=== PATIENT | female | born 1950 | race American Indian/Alaskan Native ===

== ENCOUNTER 2017-06-13 09:31 | Outpatient (CLI) | payer MEDICARE ==
--- NOTE | 2017-06-13 15:44 | Mammography Report ---
BILATERAL DIGITAL SCREENING MAMMOGRAM with CAD : 06/13/17 09:31:00 CLINICAL: Routine screening. COMPARISON:A FINDINGS: The breasts are heterogeneously dense, which may obscure small masses.The fibroglandular pattern is stable with stable bilateral asymmetries. No new mass, architectural distortion or suspicious calcifications. IMPRESSION: No mammographic evidence of malignancy. BI-RADS CATEGORY: 2 -- Benign RECOMMENDATION: Routine mammographic screening in one year. COMMENT: Patient follow-up letters are generated by our [employer] application.
== END 2017-06-13 09:32 | disposition home or self-care (01) ==
LOC: SPVWC 09:31
PROVIDERS: ATTEND Internal Medicine
DX: Z12.31 Encounter for screening mammogram for malignant neoplasm of breast (principal)
CPT/HCPCS: 77067; G0202

== ENCOUNTER 2019-06-26 09:33 | Outpatient (CLI) | payer MEDICARE ==
--- NOTE | 2019-06-26 14:30 | Mammography Report ---
DIGITAL SCREENING MAMMOGRAM WITH CAD, 06/26/2019 INDICATION: Routine screening mammography. TECHNIQUE: Digital bilateral 2D mammography was obtained in the craniocaudal and mediolateral obliq ue projections. This examination was interpreted with the benefit of Computer-Aided Detection analysi s. COMPARISON: 06/23/2018 and annual mammograms going back to 03/12/2014 FINDINGS: Breast Density: The breasts are heterogeneously dense, which may obscure small masses. There is no evidence of new mass, suspicious calcifications or architectural distortion in either martir ast. Stable right inner irregular circumscribed mass with benign calcifications. IMPRESSION: No mammographic evidence of malignancy. Follow up recommendation: Routine yearly BI-RADS Category 2: Benign. A "normal" or negative report should not discourage follow up or biopsy of a clinically significant f inding. A written summary of these findings will be mailed to the patient. The patient will be entered into a mammography reporting system which will generate a reminder letter for the patient's next appointmen t at the appropriate interval. The [employer] recommends yearly mammograms starting at age 40 and continuing as l krystina as a woman is in good health. Breast MRI is recommended for women with an approximate 20-25% or greater lifetime risk of breast cancer, including women with a strong family history of breast or ova colt cancer or who have been treated for Hodgkin's disease. Signer Name: Orville Conti MD Signed: 06/26/2019 2:26 PM Workstation Name: [id number]
== END 2019-06-26 09:34 | disposition home or self-care (01) ==
LOC: SPVWC 09:33
PROVIDERS: ATTEND Internal Medicine
DX: Z12.31 Encounter for screening mammogram for malignant neoplasm of breast (principal)
CPT/HCPCS: 77067

== ENCOUNTER 2020-07-04 10:39 | Outpatient (CLI) | payer MEDICARE ==
--- NOTE | 2020-07-04 12:11 | Mammography Report ---
DIGITAL SCREENING MAMMOGRAM WITH CAD, 07/04/2020 CLINICAL INFORMATION / INDICATION: Routine screening mammography. TECHNIQUE: Digital bilateral 2D mammography was obtained in the craniocaudal and mediolateral obliqu e projections. This examination was interpreted with the benefit of Computer-Aided Detection analysis . COMPARISON: 04/09/2015 through 06/26/2019 FINDINGS: Breast Density: There are scattered areas of fibroglandular density. No dominant mass, suspicious calcifications, or architectural distortion in either breast. There are stable benign-appearing bilateral nodules. I do not see significant interval change in the overall appearance of the mammogram. IMPRESSION: No mammographic evidence of malignancy. Follow up recommendation: Routine yearly BI-RADS Category 2: Benign. A "normal" or negative report should not discourage follow up or biopsy of a clinically significant f inding. A written summary of these findings will be mailed to the patient. The patient will be entered into a mammography reporting system which will generate a reminder letter for the patient's next appointmen t at the appropriate interval. The [employer] recommends yearly mammograms starting at age 40 and continuing as l krystina as a woman is in good health. Breast MRI is recommended for women with an approximate 20-25% or greater lifetime risk of breast cancer, including women with a strong family history of breast or ova colt cancer or who have been treated for Hodgkin's disease. Signer Name: Susana Cervantes MD Signed: 07/04/2020 12:06 PM Workstation Name: [id number]
== END 2020-07-04 10:40 | disposition home or self-care (01) ==
LOC: SPVWC 10:39
PROVIDERS: ATTEND Internal Medicine
DX: Z12.31 Encounter for screening mammogram for malignant neoplasm of breast (principal); N64.89 Other specified disorders of breast
CPT/HCPCS: 77067

== ENCOUNTER 2020-10-08 11:13 | Outpatient (CLI) | payer MEDICARE ==
--- NOTE | 2020-10-08 16:13 | Mammography Report ---
DEXA BONE DENSITY SCAN INDICATION / CLINICAL INFORMATION: UNSPECIFIED MENOPAUSAL AND PERIMENOPAUSAL DISORDER. 69 years Female COMPARISON: None available. LUMBAR SPINE, L1, L2, L4: - Bone mineral density (BMD) = 1.097 g/cm2. - T-score = -0.5 - Z-score = 1.8 Change (%) since most recent prior (if available): None available. LEFT HIP, NECK : - Bone mineral density (BMD) = 0.707 g/cm2. - T-score = -1.7 - Z-score = -0.3 Change (%) since most recent prior (if available): None available. IMPRESSION: 1. WHO Classification: Osteopenia. Fracture Risk: Increased. Note: 10-Year Fracture Risk (FRAX) not reported. This DEXA unit lacks FRAX functionality. BMD Reporting Guidelines (ISCD, 2015) BMD Reporting in Postmenopausal Women and in Men Age 50 and Older - T-scores are preferred. - The WHO densitometric classification is applicable. BMD Reporting in Females Prior to Menopause and in Males Younger Than Age 50 - Z-scores, not T-scores, are preferred. This is particularly important in children. - A Z-score of -2.0 or lower is defined as below the expected range for age, and a Z-score above -2.0 is within the expected range for age. - Osteoporosis cannot be diagnosed in men under age 50 on the basis of BMD alone. - The WHO diagnostic criteria may be applied to women in the menopausal transition. http://www.iscd.org/official-positions/5607-kpbl-qzilnfso-positions-adult/ Signer Name: Prieto Barahona MD Signed: 10/08/2020 4:08 PM Workstation Name: [id number]
== END 2020-10-08 11:14 | disposition home or self-care (01) ==
LOC: SPVWC 11:13
PROVIDERS: ATTEND Internal Medicine
DX: M85.88 Other specified disorders of bone density and structure, other site (principal); N95.9 Unspecified menopausal and perimenopausal disorder
CPT/HCPCS: 77080

== ENCOUNTER 2021-07-10 09:05 | Outpatient (CLI) | payer MEDICARE | END 2021-07-10 09:06 | disposition home or self-care (01) | LOC: SPVWC 09:05 | PROVIDERS: ATTEND Internal Medicine | DX: Z12.31 Encounter for screening mammogram for malignant neoplasm of breast (principal) | CPT/HCPCS: 77067 ==

== ENCOUNTER 2021-12-04 08:14 | Day surgery (SDC) | payer MEDICARE ==
[~2021-12-04 08:14] MED LIST: SODIUM CHLORIDE 0.9% 1000 ML 1,000 ML IV SCH
--- NOTE | 2021-12-04 09:40 | Anesthesia Day of Surgery ---
Anesthesia Day of Surgery - Day of Surgery Patient Examined: Yes Patient H&P Reviewed: Yes Patient is NPO: Yes Beta Blockers: No Cardiac Clearance: No Pulmonary Clearance: No Duncan's Test: N/A
--- NOTE | 2021-12-04 09:40 | Anesthesia Consultation ---
Anesthesia Consult and Med Hx Date of service: 12/04/21 - Airway Anesthetic Teeth Evaluation: Good, Bridges ROM Head & Neck: Adequate Mental/Hyoid Distance: Adequate Mallampati Class: Class II Intubation Access Assessment: Probably Good - Pulmonary Exam CTA: Yes - Pre-Operative Health Status ASA Pre-Surgery Classification: ASA2 Proposed Anesthetic Plan: MAC - Pulmonary Hx Smoking: No Hx Asthma: No Hx Respiratory Symptoms: No - Cardiovascular System Hx Hypertension: Yes Hx Coronary Artery Disease: No Hx Angina: No Hx Valvular Heart Disease: No Hx Heart Murmur: No - Central Nervous System Hx Neuromuscular Disorder: No Hx Seizures: No Hx Psychiatric Problems: No - Endocrine Hx Renal Disease: No Hx Liver Disease: No Hx Insulin Dependent Diabetes: No Hx Non-Insulin Dependent Diabetes: No Hx Thyroid Disease: No - Hematic Hx Anemia: No - Other Systems Hx Alcohol Use: No Hx Substance Use: No Hx Cancer: No Hx Obesity: Yes - Additional Comments Anesthesia Medical History Comments: Tatient denied previous anesthesia complication
[2021-12-04] MEDS ORDERED: propofoL 200 MG/20 ML VIAL IV ONE ×2 (09:42→09:55)
--- NOTE | 2021-12-04 10:19 | Procedure Note ---
Date of procedure: 12/04/21 Pre-op diagnosis: Colon Polyp Screening/ F/H/O Cancer (sister had Pancreatic Cancer) Post-op diagnosis: other (Multiple,Small Recto-Sigmoid Polyps (possibly Hyperplastic)/ No diverticular disease/ No Internal Hemorrhoids) Procedure: Colonoscopy with Cold Biopsy Anesthesia: MAC Surgeon: DEMETRIA AZUL Estimated blood loss: minimal Pathology: list Specimen disposition: to lab Condition: stable Disposition: same day (Avoid aspirin and NSAID for 5 days; otherwise resume previous medication and F/U in 1 to 2 weeks ([phone]).)
--- NOTE | 2021-12-04 10:32 | Operative Report ---
DATE OF SURGERY: 12/04/2021 PROCEDURE: Colonoscopy with cold biopsy. INDICATIONS: A 70-year-old -[place] female who had a colonoscopy done as part of colon polyp screening. Last colonoscopy was more than 10 years ago. She has an underlying family history of cancer, sister had pancreatic cancer. DESCRIPTION OF PROCEDURE: Colonoscopy was done after getting informed consent with MAC anesthesia. Initial rectal exam was unremarkable. The instrument was passed through the rectum onto the cecum, which was identified with ileocecal valve and appendiceal orifice. Visualization was fair to good. Cecum, ascending colon, transverse colon and descending colon showed normal mucosa in the rectosigmoid, as did most of the sigmoid. In the rectosigmoid area, there were multiple small flat polyps noted, which was possibly hyperplastic in type, these were removed by cold biopsy with minimal bleeding and rectum did not show any internal hemorrhoid on the retroverted view. ASSESSMENT: Colon polyp screening; family history of cancer, the patient's sister had pancreatic cancer; multiple small rectosigmoid polyps, possibly hyperplastic, removed by cold biopsy. No diverticular disease noted, no internal hemorrhoids noted. The patient will be asked to avoid aspirin and aspirin-related products for the next few days. Follow up in the office in 1-2 weeks' time, otherwise resume home medications. Procedure was done in the GI lab with the assistance of the GI lab team which included the GI nurse, the certified pharmacy technician and with the assistance of Anesthesia. Thank you for the consult. TID: [id number] RECEIPT: [id number] CB
--- NOTE | 2021-12-04 11:37 | Post Anesthesia Evaluation ---
- Post Anesthesia Evaluation Patient Participated: Yes Airway Patent: Yes Stable Respiratory Function: Yes Nausea/Vomiting: No Temp > 96.8F: Yes Pain Manageable: Yes Adequeate Hydration: Yes Anesthesia Complications: No
[2021-12-04 15:26] VITALS: BP 144/77
== END 2021-12-04 11:00 | disposition short-term general hospital (02) ==
LOC: GIO 08:14
DX: Z12.11 Encounter for screening for malignant neoplasm of colon (principal); K63.5 Polyp of colon; I10 Essential (primary) hypertension; Z79.899 Other long term (current) drug therapy; Z98.890 Other specified postprocedural states; Z80.0 Family history of malignant neoplasm of digestive organs
CPT/HCPCS: 45380; 88305; J2704; J7030